=== PATIENT | male | born 1930 | race Asian ===

== ENCOUNTER 2020-11-19 17:43 | Emergency (ER) | payer OTHER, MEDICAID ==
[~2020-11-19] VITALS: Ht 160 cm; Wt 59.9 kg
--- NOTE | 2020-11-19 17:43 | NUR ---
PT ROMÁN VIA GURNEY TO BED 10.
[2020-11-19 18:07] VITALS: BP 150/77
[2020-11-19] MEDS ORDERED: NACL 0.9% 1,000 ML IV ONE (18:15)
--- NOTE | 2020-11-19 18:15 | NUR ---
89YO M BIBA C/O WEAKNESS X FEW HOURS. PT WAS FOUND SITTING ON A PARK BENCH, BP TAKEN ON SCENE WAS 78/40 MMHG. UNABLE TO ASSESS ORIENTATION PT SPEAKS FOREIGN LANGUAGE, BUT PT REPORTED TO SEEM CONFUSED AND WEAK. PT WAS GIVEN 0.5 ATROPINE AND BOLUS NS EN ROUTE TO ED, BP WENT UP TO 122/60 AND BECAME MORE RESPONSIVE. IN ED, VSS. GCS 15. DAUGHTER AT BEDSIDE COMMUNICATING WITH FATHER. CLEAR BREATH SOUNDS, NORMAL RATE REGULAR RHYTHM. ABDOMEN SOFT, NONTENDER. 2 SIDERAILS UP. ERMD MADE AWARE OF PT STATUS. PMH: HTN, HLD, BPH, DEMENTIA MEDS: AMLODIPINE, DONEZEPIL, METOPROLOL, TAMSULOSIN, VALSARTAN, GEMFIBROZIL, BENICAR NKA
--- NOTE | 2020-11-19 18:30 | NUR ---
DAUGHTER AT BEDSIDE.
--- NOTE | 2020-11-19 19:21 | NUR ---
RECEIVED REPORT FROM RAFFY GOODSON FOR CONTINUITY OF CARE
--- NOTE | 2020-11-19 19:21 | NUR ---
REPORT GIVEN TO RAFFY BENITEZ. ALL CARES TRANSFERRED AT THIS TIME.
--- NOTE | 2020-11-19 19:27 | NUR ---
Patient appears to be resting comfortably in bed- semi fowlers. Vital Signs within normal limits. Respirations even and unlabored. AAOx4. Iv on the left AC is flushable with 10ml of NS. Daughter at bedside. Patient speaks mandarin. Safety measures are in place, will continue to monitor patient.
[2020-11-19 19:43] LABS: BASOPHILS % (AUTO) 0.1 % (0.0-2.0); EOSINOPHILS # (AUTO) 0.5 K/uL (0-0.4); EOSINOPHILS % (AUTO) 7.3 % (0.0-4.0); HEMATOCRIT 33.5 % (36-52); HEMOGLOBIN 11.1 g/dL (12.0-18.0); LYMPHOCYTES # (AUTO) 0.8 K/uL (2.0-11.5); LYMPHOCYTES % (AUTO) 12.3 % (20.5-51.1); MEAN CORPUSCULAR HEMOGLOBIN 31 pg (27-31); MEAN CORPUSCULAR HGB CONC 33 g/dL (33-37); MEAN CORPUSCULAR VOLUME 94.5 fL (80-94); MONOCYTES # (AUTO) 0.4 K/uL (0.8-1.0); MONOCYTES % (AUTO) 5.9 % (1.7-9.3); NEUTROPHILS # (AUTO) 4.7 K/uL (1.8-7.7); NEUTROPHILS % (AUTO) 74.4 % (42.2-75.2); PLATELET COUNT (AUTO) 146 K/uL (140-450); RED BLOOD CELL COUNT(AUTO) 3.54 MIL/uL (4.20-6.10); RED CELL DISTRIBUTION WIDTH 13.3 % (11.6-13.7); WHITE BLOOD COUNT (AUTO) 6.3 K/uL (4.8-10.8)
[2020-11-19 20:06] LABS: ALBUMIN 3.6 g/dL (3.4-5.0); ANION GAP 11.9 (8-16); ASPARTATE AMINOTRANSFERASE 19 U/L (15-37); CARBON DIOXIDE 28.2 mmol/L (21-32); CHLORIDE 110 mmol/L (98-107); CREATININE 1.8 mg/dL (0.6-1.3); GLUCOSE 113 mg/dL (74-106); POTASSIUM 4.1 mmol/L (3.5-5.1); SODIUM SERUM 146 mmol/L (136-145); TOTAL BILIRUBIN 0.3 mg/dL (0.0-1.0); UREA NITROGEN, BLOOD 21 mg/dL (7-18)
--- NOTE | 2020-11-19 20:40 | NUR ---
patient unable to provide urine and patient refused to urinate. ERMD made aware
--- NOTE | 2020-11-19 20:48 | NUR ---
IV removed, catheter intact and site benign. Applied folded 4x4 gauze and tape to stop bleeding.
[2020-11-19 20:55] VITALS: BP 141/57
--- NOTE | 2020-11-19 20:55 | NUR ---
Patient discharged with v/s stable. Written and verbal after care instructions given and explained. Patient verbalized understanding. Ambulatory with steady gait. ID band removed. All questions addressed prior to discharge. Advised to follow up with PMD.
--- NOTE | 2020-11-19 22:40 | NUR ---
Vik will in [facility] - 11/19/20 at 2252 by JAY patient unable to provide urine and refused to provide urine
== END 2020-11-19 20:55 | disposition home or self-care (01) ==
LOC: MED 17:43
DX: N28.9 Disorder of kidney and ureter, unspecified (principal); R00.1 Bradycardia, unspecified
CPT/HCPCS: 36415; 71045; 80053; 83690; 83735; 83880; 84484; 85025; 93005; 99285; J7030; Q0092